=== PATIENT | male | born 1980 | race Caucasian/White ===

== ENCOUNTER 2018-01-10 17:50 | Emergency (ER) | payer OTHER ==
[2018-01-10] MEDS ORDERED: PROPARACAINE 0.5% OPHTH DROPS 15 ML RIGHTEYE STA (18:05)
[2018-01-10] MEDS ORDERED: NEOMYCIN/POLYMYX/DEXAMETH OPHTH DROPS 5 ML RIGHTEYE STA (18:15)
--- NOTE | 2018-01-10 18:18 | ED Physician Documentation ---
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 He has severe foreign body sensation and pain in the eye. He is unable to open his eyes without pain. He has no change to his visual acuity. He has been on fast recently with reduction in his symptoms of arthritis. Review of Systems Constitutional: reports: Weight Loss. denies: Fever Eyes: reports: Irritation. denies: Loss of vision, Decreased vision Ears: denies: Ear pain Nose: denies: Rhinorrhea / runny nose, Congestion Throat: denies: Sore throat Respiratory: denies: Cough GI: denies: Vomiting PD PAST MEDICAL HISTORY - Past Medical History Past Medical History: Yes - Past Surgical History Past Surgical History: No - Present Medications Home Medications: Ambulatory Orders Medication Instructions Recorded Confirmed Neomycin/Poly/Dex Ophth Drops 1 drops RIGHTEYE QID #1 bottle 01/10/18 [Maxitrol Ophth Drops] - Allergies Allergies/Adverse Reactions: Allergies Allergy/AdvReac Type Severity Reaction Status Date / Time No Known Drug Allergies Allergy Verified 01/10/18 18:01 - Social History Does the pt smoke?: No Smoking Status: Never smoker Does the pt drink ETOH?: Yes Does the pt have substance abuse?: No Substance Use and Type: Marijuana - Immunizations Immunizations are current?: Yes PD ED PE NORMAL - Vitals Vital signs reviewed: Yes (hypertensive) - General General: Alert and oriented X 3, Well developed/nourished, Other (The patient is lying with eyes closed ) - HEENT HEENT: Atraumatic, PERRL, EOMI, Ears normal (TMS are post inflamitory bilaterally with dullness. ), Other (The right eye is injected and there is no obvious fb. The lid is everted without fb. There is fluoroscein uptake in the lateral aspect of the cornea on the right. 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 His eyes have been rinsed thoroughly and there is no evidence of foreign material left in the conjunctive a. Maxitrol I drops are instilled into the right eye. - Sepsis Event Vital Signs: Vital Signs - 24 hr 01/10/18 17:58 Temperature 36.5 C Heart Rate 59 L Respiratory 10 L Rate Blood Pressure 140/92 H O2 Saturation 96 Oxygen O2 Source Room air Departure - Departure Disposition: 01 Home, Self Care Clinical Impression: Corneal abrasion, right Qualifiers: Encounter type: initial encounter Qualified Code(s): S05.01XA - Injury of conjunctiva and corneal abrasion without foreign body, right eye, initial encounter Condition: Stable Instructions: ED Eye Injury Corneal Abrasion Follow-Up: Gareth Rosales MD [Provider Admit Priv/Credential] - Prescriptions: Neomycin/Poly/Dex Ophth Drops [Maxitrol Ophth Drops] 1 drops RIGHTEYE QID #1 bottle
[2018-01-10 18:28] VITALS: BP 148/96
== END 2018-01-10 18:27 | disposition home or self-care (01) ==
LOC: ED 17:50
DX: S05.01XA Injury of conjunctiva and corneal abrasion without foreign body, right eye, initial encounter (principal); W22.8XXA Striking against or struck by other objects, initial encounter; Y92.812 Truck as the place of occurrence of the external cause
CPT/HCPCS: 99283; J3490

== ENCOUNTER 2018-06-04 10:57 | Emergency (ER) | payer OTHER ==
[2018-06-04 11:12] VITALS: BP 143/94
[2018-06-04] MEDS ORDERED: NAPROXEN 250 MG TABLET PO STA (11:39)
--- NOTE | 2018-06-04 12:42 | XRAY Report ---
Reason: injury Procedure Date: 06/04/2018 Accession Number: [id number] / [id number] Procedure: XR - Foot 3 View LT CPT Code: FULL RESULT: EXAM: LEFT FOOT RADIOGRAPHY EXAM DATE: 06/04/2018 12:05 PM. CLINICAL HISTORY: Left foot pain. COMPARISON: ANKLE 3 VIEW LT 06/04/2018 11:54 AM. TECHNIQUE: 3 views. FINDINGS: Bones: Minor plantar spurring is seen. No fractures or bone lesions. Joints: Minor degenerative changes are seen in the tibiotalar joint. Alignment is preserved. Soft Tissues: Mild soft tissue swelling is seen in the midfoot structures. IMPRESSION: No acute findings. RADIA
--- NOTE | 2018-06-04 12:43 | XRAY Report ---
Reason: INJURY Procedure Date: 06/04/2018 Accession Number: [id number] / [id number] Procedure: XR - Ankle 3 View LT CPT Code: FULL RESULT: EXAM: LEFT ANKLE RADIOGRAPHY EXAM DATE: 06/04/2018 12:06 PM. CLINICAL HISTORY: Left ankle pain. COMPARISON: None. TECHNIQUE: 3 views. FINDINGS: Bones: No fracture or bone lesion is identified. Minor plantar spurring is seen. Joints: Minor degenerative changes are seen in the tibiotalar joint. Alignment is preserved. The talar dome appears intact. Soft Tissues: Mild soft tissue swelling is seen in the lateral ankle region. IMPRESSION: No acute osseous abnormality demonstrated. RADIA
[2018-06-04] MEDS ORDERED: AMOX/CLAV 875 MG/125 MG TABLET PO STA (12:58)
--- NOTE | 2018-06-04 13:00 | ED Physician Documentation ---
History of Present Illness - Stated complaint Stated Complaint: GLF/EAR PX - Chief complaint Chief Complaint: Ext Problem - Additonal information Additional information: 38-year-old male presents the emergency department with 2 complaints. The patient reports injuring his left foot and ankle yesterday after twisting it. The patient denies injury to his head, neck or torso. The patient is able to bear weight slightly on the foot. Symptoms are described as moderate. No relieving factors. The patient also reports pain in his left ear which is been ongoing for the past several days. No reports of fevers or chills Review of Systems Constitutional: denies: Fever, Chills Eyes: denies: Discharge Ears: reports: Ear pain Nose: denies: Congestion Throat: denies: Sore throat Cardiac: denies: Chest pain / pressure Respiratory: denies: Cough GI: denies: Abdominal Pain : denies: Dysuria Skin: denies: Laceration (s) Musculoskeletal: reports: Extremity pain, Extremity swelling Neurologic: denies: Generalized weakness Immunocompromised: denies: Chemotherapy PD PAST MEDICAL HISTORY - Past Medical History Past Medical History: No - Past Surgical History Past Surgical History: No - Present Medications Home Medications: Ambulatory Orders Medication Instructions Recorded Confirmed Amox/Clav 875/125 [Augmentin] 1 each PO Q12H #20 tablet 06/04/18 - Allergies Allergies/Adverse Reactions: Allergies Allergy/AdvReac Type Severity Reaction Status Date / Time No Known Drug Allergies Allergy Verified 06/04/18 11:12 - Social History Does the pt smoke?: Yes Smoking Status: Current every day smoker Does the pt drink ETOH?: No Does the pt have substance abuse?: No Substance Use and Type: Marijuana - Immunizations Immunizations are current?: Yes PD ED PE NORMAL - General General: Alert and oriented X 3, No acute distress - HEENT HEENT: Atraumatic, PERRL, EOMI, Moist mucous membranes - Neck Neck: No adenopathy - Derm Derm: No rash - Neuro Neuro: Alert and oriented X 3, Normal speech - Psych Psych: Normal affect PD ED PE EXPANDED - HEENT HEENT: R TM red, R TM dull, R TM bulging. No: R TM loss of landmarks - Extremities Extremities: Right ankle (The patient has swelling of the ankle and foot, there is ecchymosis and tenderness diffusely. The patient has a normal pulse. There is no crepitus. The patient has no tenderness of the fibular head. The patient has full active range of motion of the hip, knee and ankle.), Right foot Results - Vitals Vitals: Vital Signs - 24 hr 06/04/18 11:10 Temperature 36.9 C Heart Rate 53 L Respiratory 16 Rate Blood Pressure 143/94 H O2 Saturation 99 Oxygen O2 Source Room air - Rads (name of study) Ankle/foot Radiology: Final report received PD MEDICAL DECISION MAKING - ED course ED course: The patient will be placed in a air splint and appears appropriate for discharge and ongoing outpatient management. I discussed with him the findings and plan. The patient understands and agrees. I recommended follow-up with primary care and if his symptoms do not improve he may need a referral to orthopedics. The patient's ear does appear infected and that is most likely the source of his ear pain and the patient was placed on a course of oral antibiotics. I discussed warning signs and recommended returning to the emergency department for any worsening or any concerns. Departure - Departure Disposition: 01 Home, Self Care Clinical Impression: Ankle strain Qualifiers: Encounter type: initial encounter Laterality: unspecified laterality Qualified Code(s): S96.919A - Strain of unspecified muscle and tendon at ankle and foot level, unspecified foot, initial encounter AOM (acute otitis media) Qualifiers: Otitis media type: unspecified Qualified Code(s): H66.90 - Otitis media, unspecified, unspecified ear Condition: Good Instructions: Ankle Sprain, ED Otitis Media Acute Adult Prescriptions: Amox/Clav 875/125 [Augmentin] 1 each PO Q12H #20 tablet Comments: Please follow-up with primary care in 7-10 days for recheck. If your symptoms are not improving you may need a referral to orthopedics for further evaluation. Please return to the emergency department for worsening or any concerns Discharge Date/Time: 06/04/18 13:06
== END 2018-06-04 13:06 | disposition home or self-care (01) ==
LOC: ED 10:57
DX: S96.919A Strain of unspecified muscle and tendon at ankle and foot level, unspecified foot, initial encounter (principal); W11.XXXA Fall on and from ladder, initial encounter; H66.90 Otitis media, unspecified, unspecified ear
CPT/HCPCS: 99283

== ENCOUNTER 2024-01-19 08:00 | Outpatient (CLI) | payer OTHER ==
--- NOTE | 2024-01-19 17:25 | XRAY Report ---
PROCEDURE: Hand 3+V LT INDICATIONS: FB LEFT HAND/LEFT HAND PAIN TECHNIQUE: 3 views of the hand(s) acquired. COMPARISON: None. FINDINGS: Bones: No fractures or dislocations. No suspicious bony lesions. Soft tissues: No suspicious soft tissue calcifications or masses. IMPRESSION: No acute bony abnormality. No radiopaque foreign bodies. Reviewed by: Emory Carlton MD on 01/19/2024 5:23 PM PDT Approved by: Emory Carlton MD on 01/19/2024 5:23 PM PDT Station ID: [id number]
== END 2024-01-19 23:59 | disposition home or self-care (01) ==
LOC: DI.S 08:00
PROVIDERS: ATTEND Registered Nurse
DX: M25.542 Pain in joints of left hand (principal); S60.552A Superficial foreign body of left hand, initial encounter